=== PATIENT | female | born 1990 | race Caucasian/White ===

== ENCOUNTER → 2024-02-02 10:05 | Outpatient (REF) | payer OTHER, SELFPAY | LOC: PNTC 10:05 | PROVIDERS: ATTENDING PHYSICIAN Obstetrics & Gynecology | DX: Z36.9 Encounter for antenatal screening, unspecified (principal); Z34.90 Encounter for supervision of normal pregnancy, unspecified, unspecified trimester | CPT/HCPCS: 76805 ==

== ENCOUNTER → 2024-03-30 10:17 | Outpatient (REF) | payer OTHER, SELFPAY ==
--- NOTE | 2024-03-30 10:46 | PN.DIAED06 ---
Meal Plan - Gestational
- Breakfast
Gestational Diabetes Meal Plan Name: 1800 calories
Breakfast - Total Carbohydrate (grams): 30
Breakfast - Starch Carbohydrate: 1
Breakfast - Fruit Carbohydrate: 0
Breakfast - Milk Carbohydrate: 1
Breakfast - Nonstarchy Vegetables: Yes
Breakfast - Meat/Protein: 1
Breakfast - Fat: 2
- Morning Snack
Morning Snack - Total Carbohydrate (grams): 30
Morning Snack - Starch Carbohydrate: 1
Morning Snack - Fruit Carbohydrate: 0
Morning Snack - Milk Carbohydrate: 1
Morning Snack - Nonstarchy Vegetables: Yes
Morning Snack - Meat/Protein: 0.5
Morning Snack - Fat: 0
- Lunch
Lunch - Total Carbohydrate (grams): 45
Lunch - Starch Carbohydrate: 2
Lunch - Fruit Carbohydrate: 1
Lunch - Milk Carbohydrate: 0
Lunch - Nonstarchy Vegetables: Yes
Lunch - Meat/Protein: 2
Lunch - Fat: 1
- Afternoon Snack
Afternoon Snack - Total Carbohydrate (grams): 30
Afternoon Snack - Starch Carbohydrate: 1
Afternoon Snack - Fruit Carbohydrate: 1
Afternoon Snack - Milk Carbohydrate: 0
Afternoon Snack - Nonstarchy Vegetables: Yes
Afternoon Snack - Meat/Protein: 1
Afternoon Snack - Fat: 0
- Dinner
Dinner - Total Carbohydrate (grams): 45
Dinner - Starch Carbohydrate: 2
Dinner - Fruit Carbohydrate: 0
Dinner - Milk Carbohydrate: 1
Dinner - Nonstarchy Vegetables: Yes
Dinner - Meat/Protein: 2
Dinner - Fat: 2
- Evening Snack
Evening Snack - Total Carbohydrate (grams): 30
Evening Snack - Starch Carbohydrate: 1
Evening Snack - Fruit Carbohydrate: 0
Evening Snack - Milk Carbohydrate: 1
Evening Snack - Nonstarchy Vegetables: Yes
Evening Snack - Meat/Protein: 1
Evening Snack - Fat: 1
--- NOTE | 2024-03-30 15:12 | PN.DE ---
Diabetes Education
- -
Met with Ms. Ballesteros and her sister- Bouchra today. Mamie is currently at 22 weeks of gestation. Here today for medical nutrition therapy.
Explained glucose metabolism in body and what occurs during to cause increase blood sugar. Discussed importance of keeping BS well controlled to avoid complications to the baby during and after (macrosomia, hypoglycemia).
Explained to Mamie that she is at increased risk of developing T2DM in the future.
Provided with and instructions given on Contour Next glucometer, instructions on proper testing technique, testing sites and testing pattern given. She is aware to test FBS and 2 hr pp each meal. Expected results for FBS <95 mg/dl and 2 hr pp <120
mg/dl. She is aware if testing 1 hr pp, result should be <140 mg/dl. Noted for blood sugar of 89 2 hrs after breakfast. Log sheet provided for her to record results, she will send a 4 day meal log with all her FBG and 2hr Post prandial glucose
numbers to this office for review.
In addition, she will send all her glucose readings to Ivelisse at [facility] every Friday.
Discussed macronutrients, provided with 1800 dontae GDM meal plan, she has a good understanding of healthy nutrition and has always been eating healthy even before . She has been educated on how to read a nutritional fact label and look at
total CHO in relation to serving size. No fruit or fruit juice until noontime. Provided with handout on snacks as well as 'Choose Your Foods' booklet. Encouraged exercise and increase physical activity during and encouraged her to reach
out should she have any questions or require insulin as her progresses.
== END ==
LOC: DES 10:17
PROVIDERS: ATTENDING PHYSICIAN Obstetrics & Gynecology
DX: O24.419 Gestational diabetes mellitus in pregnancy, unspecified control (principal)
CPT/HCPCS: 99078

== ENCOUNTER → 2024-04-01 07:02 | Outpatient (REF) | payer OTHER, SELFPAY | LOC: PNTC 07:02 | PROVIDERS: ATTENDING PHYSICIAN Obstetrics & Gynecology | DX: O24.419 Gestational diabetes mellitus in pregnancy, unspecified control (principal) | CPT/HCPCS: 76816 ==

== ENCOUNTER → 2024-05-03 07:02 | Outpatient (REF) | payer OTHER, SELFPAY | LOC: PNTC 07:02 | PROVIDERS: ATTENDING PHYSICIAN Obstetrics & Gynecology | DX: O24.419 Gestational diabetes mellitus in pregnancy, unspecified control (principal) | CPT/HCPCS: 76816 ==

== ENCOUNTER → 2024-06-01 07:07 | Outpatient (REF) | payer OTHER, SELFPAY | LOC: PNTC 07:07 | PROVIDERS: ATTENDING PHYSICIAN Obstetrics & Gynecology | DX: O24.419 Gestational diabetes mellitus in pregnancy, unspecified control (principal) | CPT/HCPCS: 36415; 76816 ==

== ENCOUNTER 2024-06-13 14:53 | Observation (INO) | payer OTHER, SELFPAY ==
[2024-06-13 15:04] VITALS: BP 136/86; BMI 31.2
== END 2024-06-13 16:00 | disposition home or self-care (01) ==
LOC: LDRP 14:53
PROVIDERS: ADMITTING PHYSICIAN Obstetrics & Gynecology
DX: O47.03 False labor before 37 completed weeks of gestation, third trimester (principal); Z3A.39 39 weeks gestation of pregnancy
CPT/HCPCS: 86850; 86900; 86901; G0378

== ENCOUNTER 2024-06-13 20:55 | Inpatient (IN) | payer OTHER, SELFPAY ==
[2024-06-13 21:06] VITALS: BP 136/92; BMI 32.2
[2024-06-13] MEDS: LR 1000 IV ×2 (21:30→22:30)
[2024-06-13 21:45] LABS: Glucose - Point of Care 80 mg/dl (70-99)
[2024-06-13 21:50] LABS: % Basophils 0.3 % (0-2); % Eosinophils 0.1 % (0-6); % Immature Granulocytes 0.5 % (0-0.5); % Lymphocytes 6.6 % (20.5-51.1); % Monocytes 4.2 % (1.7-9.3); % Neutrophils 88.3 % (42.2-75.2); Absolute Immature Granulocytes 0.1 10^3/uL (0-0.05); Absolute Monocytes 0.6 10^3/uL (0.1-0.6); Absolute Neutrophils 12.9 10^3/uL (1.4-6.5); Hematocrit 36.7 % (37.0-47.0); Hemoglobin 12.5 g/dL (12.0-16.0); Mean Corp Hgb Conc. 34.1 g/dL (33.0-37.0); Mean Corpuscular Hgb 30.9 pg (27.0-31.0); Mean Corpuscular Volume 90.8 fL (81.0-99.0); Mean Platelet Volume 12.7 fL (7.4-10.4); Nucleated Red Blood Cells % 0 %; Platelet Count 180 10^3/uL (130-400); Red Blood Cell Count 4.04 10^6/uL (4.20-5.40); Red Cell Dist. Width 13.8 % (11.5-14.5); White Blood Cell Count 14.6 10^3/uL (4.8-10.8)
[2024-06-13] MEDS: FENTANYL/BUPIVACAINE 100 EPIDURAL (22:19)
[2024-06-13] MEDS: SUBLIMAZE 100 MCG EPIDURAL (22:19)
[2024-06-14] MEDS: TUMS CHEWABLE TABLET 400 MG PO ×3 (00:18→19:23)
[2024-06-14 01:40] LABS: Glucose - Point of Care 87 mg/dl (70-99)
[2024-06-14 05:58] LABS: Glucose - Point of Care 72 mg/dl (70-99)
[2024-06-14] MEDS: FENTANYL/BUPIVACAINE 100 EPIDURAL ×2 (06:20→22:37)
[2024-06-14] MEDS: LR 1000 IV (07:05)
[2024-06-14 10:07] LABS: Glucose - Point of Care 77 mg/dl (70-99)
[2024-06-14 12:06] LABS: Glucose - Point of Care 75 mg/dl (70-99)
[2024-06-14 14:20] LABS: Glucose - Point of Care 113 mg/dl (70-99)
[2024-06-14] MEDS: PITOCIN 30 UNITS/NSS 500 ML IV (15:41)
[2024-06-14] MEDS: PRENATAL PLUS PO (15:41)
[2024-06-14 15:48] LABS: Glucose - Point of Care 122 mg/dl (70-99)
[2024-06-14 16:54] LABS: Glucose - Point of Care 99 mg/dl (70-99)
[2024-06-14 19:09] LABS: Glucose - Point of Care 70 mg/dl (70-99)
[2024-06-14 21:06] LABS: Glucose - Point of Care 85 mg/dl (70-99)
[2024-06-14 23:15] LABS: Glucose - Point of Care 109 mg/dl (70-99)
[2024-06-14] MEDS: GENTAMICIN 59.375 MG IV (23:32)
[2024-06-15] MEDS: XYLOCAINE-MPF 1% VIAL 30 ML INFIL (00:17)
[2024-06-15] MEDS: METHERGINE INJECTION 0.2 MG IM (00:23)
[2024-06-15] MEDS: TRANEXAMIC ACID 100 IV (00:32)
[2024-06-15] MEDS: CYTOTEC 800 MCG RECTAL (00:36)
[2024-06-15] MEDS: VANCOCIN 200 IV (00:55)
[2024-06-15 01:45] LABS: % Basophils 0.2 % (0-2); % Eosinophils 0.2 % (0-6); % Immature Granulocytes 0.7 % (0-0.5); % Monocytes 5.3 % (1.7-9.3); % Neutrophils 90.6 % (42.2-75.2); Absolute Eosinophils 0.1 10^3/uL (0-0.7); Absolute Immature Granulocytes 0.1 10^3/uL (0-0.05); Absolute Lymphocytes 0.6 10^3/uL (1.2-3.4); Absolute Monocytes 1.1 10^3/uL (0.1-0.6); Absolute Neutrophils 18.8 10^3/uL (1.4-6.5); Hemoglobin 12.1 g/dL (12.0-16.0); Mean Corp Hgb Conc. 34.6 g/dL (33.0-37.0); Mean Corpuscular Hgb 31.6 pg (27.0-31.0); Mean Corpuscular Volume 91.4 fL (81.0-99.0); Mean Platelet Volume 12.7 fL (7.4-10.4); Nucleated Red Blood Cells % 0 %; Platelet Count 150 10^3/uL (130-400); Red Blood Cell Count 3.83 10^6/uL (4.20-5.40); Red Cell Dist. Width 14.1 % (11.5-14.5); White Blood Cell Count 20.8 10^3/uL (4.8-10.8)
[2024-06-15 01:54] LABS: ALT (SGPT) 20 U/L (0-35); AST (SGOT) 40 U/L (14-36); Albumin 2.9 g/dl (3.5-5.0); Alkaline Phosphatase 217 U/L (38-126); Blood Urea Nitrogen 12 mg/dl (7-17); Calcium 8.8 mg/dl (8.4-10.2); Carbon Dioxide 20 mmol/L (22-30); Chloride 103 mmol/L (98-107); Estimated Creatinine Clearance 90 ml/min; Glucose 106 mg/dl (70-99); Potassium 4.2 mmol/L (3.5-5.1); Sodium 132 mmol/L (135-145); Total Bilirubin 0.5 mg/dl (0.2-1.3); Total Protein 5.2 g/dl (6.3-8.2); eGFR > 60.00
[2024-06-15] MEDS: PRENATAL PLUS PO (02:23)
[2024-06-15] MEDS: TRANDATE 200 MG PO (02:25)
[2024-06-15 03:08] LABS: Urine Albumin 1+ (Neg - Trace); Urine Bilirubin Negative (Negative); Urine Character Slightly Cloudy (Clear); Urine Color Yellow; Urine Glucose Negative (Negative); Urine Ketone Trace (Negative); Urine Leukocyte Trace (Negative); Urine Nitrite Negative (Negative); Urine Occult Blood 4+ (Negative); Urine Urobilinogen Negative (Neg - 1+)
[2024-06-15 03:17] LABS: Protein/creatinine Ratio 0.3; Urine Protein 47 mg/dl
[2024-06-15] MEDS: LR 1000 IV ×2 (04:00→16:48)
[2024-06-15] MEDS: MAGNESIUM SULFATE 100 IV (04:03)
[2024-06-15 04:16] LABS: Urine Bacteria Many (Negative); Urine Red Blood Cell >100 /HPF (0-2); Urine Squamous Cell 16-20 /LPF (Few)
[2024-06-15] MEDS: MAGNESIUM SULFATE 40 GRAM 1000 IV (04:32)
[2024-06-15 10:15] LABS: Hematocrit 27.9 % (37.0-47.0); Hemoglobin 9.7 g/dL (12.0-16.0)
[2024-06-15 10:27] LABS: Magnesium 4.9 mg/dl (1.6-2.3)
[2024-06-15] MEDS: VANCOCIN IV (10:46)
[2024-06-15] MEDS: MOTRIN 600 MG PO ×2 (13:06→19:40)
[2024-06-15] MEDS: SENOKOT-S 1 TABLET PO (13:38)
[2024-06-15] MEDS: FERRLECIT 110 MG IV (13:38)
[2024-06-15] MEDS: PRENATAL PLUS 1 TABLET PO (21:59)
[2024-06-16] MEDS: MOTRIN 600 MG PO ×2 (02:58→10:37)
[2024-06-18 11:18] LABS: Syphilis/T. pallidum Ab Reflex Negative (Negative)
--- NOTE | 2024-06-21 06:59 | PN.CDI ---
CDI
- -
CDI:
Physician Documentation Request
Admit Date: 06/13/24 20:55
Dear Doctor Cj,
Please review the following and provide your response in the progress notes.
Clinical Indicators:
The diagnosis of 'Maternal inflammatory response stage 2, grade 2 (also called acute chorioamnionitis).' was included in the signed path report.
Please indicate in your progress notes if you are in agreement that the above diagnosis is valid for this patient:
____ - Acute chorioamnionitis is a valid diagnosis (Please include it in your progress notes)
____ - Acute chorioamnionitis is not a valid diagnosis for this patient
____ - Acute chorioamnionitis is not yet confirmed but remains a suspected condition
____ - Other
____ - Unable to determine
Use of terms such as suspected, likely, concern for, or probable are acceptable for a diagnosis that is being evaluated, monitored or treated as if it exists and can be coded in the inpatient setting, when documented at the time of discharge.
Thank you,
Marilia Christiansen
Optomechanical Engineer
Please use your independent medical judgment in providing your response.
--- NOTE | 2024-07-06 08:05 | W.PN.UPDATE ---
Update Note
Progress Note Update
For Kirsten's admission, acute chorioamnionitis is a valid diagnosis.
She had temp 100.8 during labor, tachycardia and pathology placenta supports chorioamnionitis.
== END 2024-06-16 18:46 | disposition home or self-care (01) | DRG 805 ==
LOC: LDRP 20:55
PROVIDERS: Obstetrics & Gynecology; ADMITTING PHYSICIAN Obstetrics & Gynecology
PROC: 0UQMXZZ Repair Vulva, External Approach (ICD-10-PCS; 2024-06-15)
PROC: 0KQM0ZZ Repair Perineum Muscle, Open Approach (ICD-10-PCS; 2024-06-15)
PROC: 10E0XZZ Delivery of Products of Conception, External Approach (ICD-10-PCS; 2024-06-15)
DX: O24.420 Gestational diabetes mellitus in childbirth, diet controlled (principal); O41.1230 Chorioamnionitis, third trimester, not applicable or unspecified; Z37.0 Single live birth; O72.1 Other immediate postpartum hemorrhage; Z3A.39 39 weeks gestation of pregnancy; O14.14 Severe pre-eclampsia complicating childbirth; O70.1 Second degree perineal laceration during delivery; O71.82 Other specified trauma to perineum and vulva; O90.81 Anemia of the puerperium; D64.9 Anemia, unspecified
CPT/HCPCS: 88307; 80053; 81003; 81015; 82570; 82962; 83735; 84156; 85014; 85018; 85025; 86780; 86850; 86900; 86901; J2916